=== PATIENT | male | born 1995 | race Caucasian/White ===

== ENCOUNTER 2018-01-02 10:34 | Emergency (ER) | payer BC ==
[~2018-01-02] VITALS: Ht 182.9 cm; Wt 90.7 kg
[2018-01-02 11:07] VITALS: BP_SYST 121
[2018-01-02 11:43] LABS: BASOPHILS # (AUTO) 0.1 K/uL (0.0-0.2); BASOPHILS % (AUTO) 2.2 % (0.0-2.0); EOSINOPHILS # (AUTO) 0.1 K/uL (0.0-0.4); EOSINOPHILS % (AUTO) 2.1 % (0.0-4.0); HEMATOCRIT 50.4 % (36-54); HEMOGLOBIN 17.1 g/dL (14.0-18.0); LYMPHOCYTES # (AUTO) 1.1 K/uL (1.0-5.5); LYMPHOCYTES % (AUTO) 22.7 % (20.5-51.5); MEAN CORPUSCULAR HEMOGLOBIN 30 pg (27-31); MEAN CORPUSCULAR HGB CONC 34 % (32-36); MEAN CORPUSCULAR VOLUME 89 fL (79.0-98.0); MONOCYTES # (AUTO) 0.4 K/uL (0.0-1.0); MONOCYTES % (AUTO) 7.3 % (1.7-9.3); NEUTROPHILS # (AUTO) 3.3 K/uL (1.8-7.7); NEUTROPHILS % (AUTO) 65.7 % (40.0-70.0); PLATELET COUNT (AUTO) 211 K/uL (130-430); RED BLOOD CELL COUNT(AUTO) 5.69 MIL/uL (4.2-6.2); RED CELL DISTRIBUTION WIDTH 12.8 % (9.0-15.0)
[2018-01-02 11:50] LABS: CALCIUM 9.2 mg/dL (8.4-11.0); CREATININE 1.17 mg/dL (0.55-1.30); POTASSIUM 4.4 mmol/L (3.5-5.1)
[2018-01-02 11:55] LABS: ALBUMIN 4.3 g/dL (3.4-4.8)
--- NOTE | 2018-01-02 12:21 | NUR ---
Patient to ER bed 06 to gown for evaluation. Side rails up.
--- NOTE | 2018-01-02 12:30 | NUR ---
Gwendolyn Boyer at bedside examining patient
--- NOTE | 2018-01-02 12:35 | NUR ---
Pt brought by self, A&O x4, pt states he had one episode of slurred speech , weakness and headache, denies pain or slurred speech at this time, intact ROM, VSS, afebrile,respirations even and unlabored, denies chest pain.
[2018-01-02 13:05] VITALS: BP_SYST 121
--- NOTE | 2018-01-02 13:05 | NUR ---
Note undone in EDM - 01/02/18 at 1705 by [email or web address] Patient given written and verbal discharge instructions and verbalizes understanding. ER discussed with patient the results and treatment provided. Patient in stable condition. ID arm band removed. No Rx given. Patient educated on pain management and to follow up with PMD. Pain Scale 0. Opportunity for questions provided and answered. Medication side effect fact sheet provided.
--- NOTE | 2018-01-02 13:30 | NUR ---
Pt on stable condition, VS WNL, respirations even and unlabored, normal speech , denies pain.
--- NOTE | 2018-01-02 14:05 | NUR ---
Patient given written and verbal discharge instructions and verbalizes understanding. ER MD discussed with patient the results and treatment provided. Patient in stable condition. ID arm band removed. No Rx given. Patient educated on pain management and to follow up with PMD. Pain Scale 0. Opportunity for questions provided and answered. Medication side effect fact sheet provided.
== END 2018-01-02 13:05 | disposition home or self-care (01) ==
LOC: SED 10:34
DX: F41.9 Anxiety disorder, unspecified (principal); J45.909 Unspecified asthma, uncomplicated
CPT/HCPCS: 36415; 70450-TC; 80053; 85025; 99285

== ENCOUNTER 2019-04-05 11:32 | Emergency (ER) | payer BC ==
[~2019-04-05] VITALS: Ht 182.9 cm; Wt 93.0 kg
[2019-04-05 11:35] VITALS: BP_SYST 127
--- NOTE | 2019-04-05 13:25 | NUR ---
Patient to ER bed 02 to gown for evaluation. Side rails up.
--- NOTE | 2019-04-05 13:25 | NUR ---
Patient is awake, alert, and oriented x4. Mother is at bedside. Patient is complaining of dry cough x3 days. Patient does not appear to be in any distress. Vitals are within normal limits.
--- NOTE | 2019-04-05 13:30 | NUR ---
ER DORCAS Olivo at bedside examining patient.
[2019-04-05] MEDS ORDERED: DEXAMETHASONE SOD PHOSPHATE 10 MG/ML VIAL IM ONE (13:45)
--- NOTE | 2019-04-05 13:47 | NUR ---
Patient given written and verbal discharge instructions and verbalizes understanding. ER MD discussed with patient the results and treatment provided. Patient in stable condition. ID arm band removed. Rx of loratadine, albuterol, tessalon perles given. Patient educated on pain management and to follow up with PMD. Pain Scale 0/10. Opportunity for questions provided and answered. Medication side effect fact sheet provided.
[2019-04-05 13:48] VITALS: BP_SYST 132
== END 2019-04-05 13:48 | disposition home or self-care (01) ==
LOC: SED 11:32
DX: H65.93 Unspecified nonsuppurative otitis media, bilateral (principal); J45.909 Unspecified asthma, uncomplicated
CPT/HCPCS: 96372; 99283; J1100

== ENCOUNTER 2019-07-21 05:51 | Emergency (ER) | payer BC ==
[~2019-07-21] VITALS: Ht 182.9 cm; Wt 88.5 kg
[2019-07-21 05:55] VITALS: BP_SYST 133
--- NOTE | 2019-07-21 07:50 | NUR ---
Patient to ER bed 5 to gown for evaluation. Side rails up. Report given to INDIO Bowman.
--- NOTE | 2019-07-21 08:17 | NUR ---
ER at bedside examining patient.
--- NOTE | 2019-07-21 08:20 | NUR ---
Pt arrived to ED with complaints of sore throat x 1 week. Pt was seen in urgent care on Friday and given a RX of Amoxicillin. Pt still has a complaint of left side sore throat pain with out improvement. 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
[2019-07-21] MEDS ORDERED: DEXAMETHASONE SOD PHOSPHATE 10 MG/ML VIAL IVP ONE (08:30)
[2019-07-21 09:17] VITALS: BP_SYST 128
--- NOTE | 2019-07-21 09:17 | NUR ---
Patient given written and verbal discharge instructions and verbalizes understanding. ER MD discussed with patient the results and treatment provided. Patient in stable condition. ID arm band removed. IV catheter removed intact and dressing applied, no active bleeding. No Rx given. Patient educated on pain management and to follow up with PMD. Pain Scale 1/10. Opportunity for questions provided and answered. Medication side effect fact sheet provided.
== END 2019-07-21 09:17 | disposition home or self-care (01) ==
LOC: SED 05:51
DX: J02.9 Acute pharyngitis, unspecified (principal); R13.10 Dysphagia, unspecified; J45.909 Unspecified asthma, uncomplicated
CPT/HCPCS: 99282; J1100